=== PATIENT | female | born 1990 | race Caucasian/White ===

== ENCOUNTER 2017-04-24 00:03 | Emergency (ER) | payer MEDICAID, OTHER ==
[~2017-04-24] VITALS: Ht 162.6 cm; Wt 90.0 kg
[~2017-04-24 00:03] MED LIST: PNV1TAB.5 PO
[2017-04-24] MEDS ORDERED: ONDANSETRON 2MG/ML, 2ML IVPush ONE (00:30)
[2017-04-24] MEDS ORDERED: SODIUM CHLORIDE 0.9% 1,000ML IVBOLUS ONE (00:30)
[2017-04-24] MEDS ORDERED: SODIUM CHLORIDE FLUSH 10ML SYR IVF ONE (00:30)
[2017-04-24] MEDS ORDERED: ONDANSETRON 2MG/ML, 2ML ONE (00:49)
[2017-04-24] MEDS ORDERED: MORPHINE SULFATE 4 MG/ML, 1ML ONE ×2 (00:49→02:25)
[2017-04-24] MEDS: MORPHINE SULFATE 4 MG/ML, 1ML IVPush PRN ×2 (01:01→02:45)
[2017-04-24 01:02] LABS: ASPARTATE AMINO TRANSFERASE 17 U/L (15-37); BLOOD UREA NITROGEN 17 mg/dL (7-18)
[2017-04-24] MEDS ORDERED: OMEP-110 PO (02:21)
[2017-04-24] MEDS ORDERED: [UNRECOGNIZED DRUG - CODE] PO (02:21)
[2017-04-24] MEDS ORDERED: NITR100C PO (02:22)
[2017-04-24 03:19] VITALS: BP 100/51
== END 2017-04-24 03:21 | disposition home or self-care (01) ==
LOC: ED 01:41
DX: N13.2 Hydronephrosis with renal and ureteral calculous obstruction (principal); K22.70 Barrett's esophagus without dysplasia; N20.1 Calculus of ureter
CPT/HCPCS: 36415; 74176; 80053; 81001; 84703; 85025; 87086; 96361; 96374; 96375; 96376; 99285; J2405; J7030

== ENCOUNTER → 2017-05-12 | Outpatient (CLI) | payer OTHER ==
[~2017-05-12] MED LIST changes: +NITR100C PO; +OMEP-110 PO; +[UNRECOGNIZED DRUG - CODE] PO
== END | disposition home or self-care (01) ==
LOC: CFH 16:45
PROVIDERS: ATTEND Urology
DX: E83.50 Unspecified disorder of calcium metabolism (principal); Z87.442 Personal history of urinary calculi
CPT/HCPCS: 76770